=== PATIENT | female | born 1970 | race Caucasian/White ===

== ENCOUNTER → 2017-04-21 | Outpatient (CLI) | payer BC ==
[2017-04-21 13:01] LABS: Cholesterol 174 mg/dL (<200); HDL Cholesterol 63 mg/dL (40-60)
== END | disposition home or self-care (01) ==
LOC: LABWHC1 12:09
PROVIDERS: ATTEND Obstetrics & Gynecology
DX: E78.4 Other hyperlipidemia (principal)
CPT/HCPCS: 36415; 80061

== ENCOUNTER → 2018-04-02 | Outpatient (CLI) | payer BC ==
--- NOTE | 2018-04-04 13:32 | MM ---
Reason for exam: screening (asymptomatic). Last mammogram was performed 2 years and 1 month ago. History: Took hormonal contraceptives for 10 years beginning at age 25. Physical Findings: A clinical breast exam by your physician is recommended on an annual basis and results should be correlated with mammographic findings. MG 3D Screening Mammo W/Cad Bilateral CC and MLO view(s) were taken. Prior study comparison: March 09, 2016, bilateral MG screening mammo w CAD. January 23, 2015, bilateral MG diagnostic mammo w CAD JUNE. The breast tissue is heterogeneously dense. This may lower the sensitivity of mammography. No significant changes when compared with prior studies. ASSESSMENT: Negative, BI-RAD 1 RECOMMENDATION: Routine screening mammogram of both breasts in 1 year.
== END | disposition home or self-care (01) ==
LOC: RADMAMWWP 12:38
PROVIDERS: ATTEND Obstetrics & Gynecology
DX: Z12.31 Encounter for screening mammogram for malignant neoplasm of breast (principal)
CPT/HCPCS: 77063; 77067

== ENCOUNTER → 2019-04-18 | Outpatient (CLI) | payer BC ==
--- NOTE | 2019-04-22 09:58 | MM ---
Reason for exam: screening (asymptomatic). Last mammogram was performed 1 year and 1 month ago. History: Took hormonal contraceptives for 10 years beginning at age 25. Physical Findings: A clinical breast exam by your physician is recommended on an annual basis and results should be correlated with mammographic findings. MG 3D Screening Mammo W/Cad Bilateral CC and MLO view(s) were taken. Prior study comparison: April 02, 2018, bilateral MG 3d screening mammo w/cad. March 09, 2016, bilateral MG screening mammo w CAD. The breast tissue is heterogeneously dense. This may lower the sensitivity of mammography. No significant changes when compared with prior studies. ASSESSMENT: Benign, BI-RAD 2 RECOMMENDATION: Routine screening mammogram of both breasts in 1 year.
== END | disposition home or self-care (01) ==
LOC: RADMAMWWP 14:51
PROVIDERS: ATTEND Obstetrics & Gynecology
DX: Z12.31 Encounter for screening mammogram for malignant neoplasm of breast (principal)
CPT/HCPCS: 77063; 77067

== ENCOUNTER 2019-11-04 13:06 | Emergency (ER) | payer BC ==
[2019-11-04] MEDS ORDERED: HYDROmorphone 0.5 MG/0.5 ML SYRINGE IM STA (13:43)
[2019-11-04] MEDS ORDERED: ONDANSETRON ODT 4 MG TAB PO STA (13:43)
[2019-11-04] MEDS ORDERED: DIPH,PERTUS(ACELL)TETVAC-LF 0.5 ML VIAL IM ONE (13:54)
--- NOTE | 2019-11-04 13:55 | ED ---
Fall HPI - General Chief Complaint: Fall Stated Complaint: Fall/left hand injury Time Seen by Provider: 11/04/19 13:26 Source: patient Mode of arrival: wheelchair Limitations: no limitations - History of Present Illness Initial Comments: 49-year-old female presents emergency Department with chief complaint of a fall. Patient states she tripped, falling to her left arm. Patient went of left hand, forearm and left shoulder pain. Patient denies any head injury no loss conscious. Patient is right-hand dominant denies any prior fractures of left hand. Patient states there is noted bruising. Patient is unsure when her last tetanus was. She does have an abrasion by her fifth digit. - Related Data Previous Rx's Medication Instructions Recorded Cephalexin [Keflex] 500 mg PO Q8HR #21 cap 11/04/19 Allergies Allergy/AdvReac Type Severity Reaction Status Date / Time acetaminophen AdvReac Nausea & Verified 11/04/19 13:24 [From Tylenol-Codeine #3] Vomiting & Diarrhea codeine AdvReac Nausea & Verified 11/04/19 13:24 [From Tylenol-Codeine #3] Vomiting & Diarrhea Review of Systems ROS Statement: Those systems with pertinent positive or pertinent negative responses have been documented in the HPI. ROS Other: All systems not noted in ROS Statement are negative. Past Medical History Past Medical History: No Reported History History of Any Multi-Drug Resistant Organisms: None Reported Past Surgical History: Section Past Psychological History: No Psychological Hx Reported Smoking Status: Never smoker Past Alcohol Use History: None Reported Past Drug Use History: None Reported General Exam Limitations: no limitations General appearance: alert, in no apparent distress Head exam: Present: atraumatic, normocephalic, normal inspection Eye exam: Present: normal appearance, PERRL, EOMI. Absent: scleral icterus, conjunctival injection, periorbital swelling ENT exam: Present: normal exam, normal oropharynx, mucous membranes moist, TM's normal bilaterally Neck exam: Present: normal inspection, full ROM. Absent: tenderness, meningismus, lymphadenopathy Respiratory exam: Present: normal lung sounds bilaterally. Absent: respiratory distress, wheezes, rales, rhonchi, stridor Cardiovascular Exam: Present: regular rate, normal rhythm, normal heart sounds. Absent: systolic murmur, diastolic murmur, rubs, gallop, clicks Extremities exam: Present: other (There is ecchymosis and swelling on the left hand, neurovascular intact patient will not move her digits secondary to pain, there isexact wrist tenderness there is some proximal forearm tenderness and left humeral tenderness. No iris deformity neurovascular intact) Skin exam: Present: warm, dry, intact, normal color. Absent: rash Course Vital Signs 11/04/19 13:21 Temperature 98 F Pulse Rate 88 Respiratory 22 Rate Blood Pressure 133/93 O2 Sat by Pulse 99 Oximetry Procedures - Orthopedic Fracture Reduction Fracture #1 Consent Obtained: verbal consent Side: left Fracture Reduction Location: finger Analgesia: digital block Technique: direct manipulation Post-Reduction Neuro Exam: intact Post-Reduction Vascular Exam: intact Splint Applied: Yes Patient Tolerated Procedure: well, no complications Medical Decision Making - Medical Decision Making Patient Department for a fall, and arm injury. X-rays were obtained shows a fifth digit fracture. Patient will be discharged with close follow-up as her slight displacement. Return parameters were discussed. Family requests we followed up with [facility] Disposition Clinical Impression: Fall, Left shoulder strain, Fracture of phalanx, proximal, left hand Disposition: HOME SELF-CARE Condition: Stable Instructions (If sedation given, give patient instructions): Finger Fracture (ED) Additional Instructions: Please return to the Emergency Department if symptoms worsen or any other concerns. Prescriptions: Cephalexin [Keflex] 500 mg PO Q8HR #21 cap Is patient prescribed a controlled substance at d/c from ED?: No Referrals: Paul Jack MD [Primary Care Provider] - 1-2 days Zoran Tsai DO [Doctor of Osteopathic Medicine] - 1-2 days Time of Disposition: 15:20
[2019-11-04] MEDS ORDERED: LIDOCAINE 1% INJ 10MG/ML (20 ML MDV) SQ ONE (14:05)
[2019-11-04] MEDS ORDERED: CEPHALEXIN 500 MG CAP PO STA (14:05)
--- NOTE | 2019-11-04 14:19 | XR ---
EXAMINATION TYPE: XR shoulder complete LT DATE OF EXAM: 11/04/2019 CLINICAL HISTORY: Left shoulder pain TECHNIQUE: Three views of the left shoulder are obtained. COMPARISON: None. FINDINGS: There is no acute fracture/dislocation evident in the left shoulder. The acromioclavicula r and glenohumeral joint spaces appear within normal limits. The visualized ribs are intact and unre markable. IMPRESSION: There is no acute fracture or dislocation in the left shoulder.
--- NOTE | 2019-11-04 14:24 | XR ---
Left forearm HISTORY: Pain 2 views of the left forearm Bone mineralization, joint spaces and alignment are maintained. No fracture or dislocation. IMPRESSION: Normal left forearm
--- NOTE | 2019-11-04 14:26 | XR ---
Left hand HISTORY: Pain 3 views of the left hand There is a fracture of the proximal aspect of the proximal phalanx of the fifth digit left hand which appears impacted. No evident intra-articular involvement. No dislocation impression: Fifth digit fracture
[2019-11-04 15:29] VITALS: BP 123/78; PULSE 75; RESP 16; TEMP 98.1
== END 2019-11-04 15:32 | disposition home or self-care (01) ==
LOC: EC 13:06
DX: S62.617A Displaced fracture of proximal phalanx of left little finger, initial encounter for closed fracture (principal); S46.912A Strain of unspecified muscle, fascia and tendon at shoulder and upper arm level, left arm, initial encounter; M79.632 Pain in left forearm; Z88.5 Allergy status to narcotic agent; Z88.6 Allergy status to analgesic agent; Z23 Encounter for immunization; W01.0XXA Fall on same level from slipping, tripping and stumbling without subsequent striking against object, initial encounter; Y92.480 Sidewalk as the place of occurrence of the external cause
CPT/HCPCS: 73030; 73090; 73130; 90715; 99283; 26725; 96372; 90471; J2001; J1170

== ENCOUNTER → 2020-06-22 | Outpatient (CLI) | payer BC ==
[2020-06-22 17:55] LABS: Follicle Stimulating Hormone 48.1 mIU/mL; Luteinizing Hormone 24.7 mIU/mL
--- NOTE | 2020-06-24 10:11 | MM ---
Reason for exam: screening (asymptomatic). Last mammogram was performed 1 year and 2 months ago. History: Took hormonal contraceptives for 10 years beginning at age 25. Physical Findings: A clinical breast exam by your physician is recommended on an annual basis and results should be correlated with mammographic findings. MG 3D Screening Mammo W/Cad Bilateral CC and MLO view(s) were taken. Prior study comparison: April 18, 2019, bilateral MG 3d screening mammo w/cad. April 02, 2018, bilateral MG 3d screening mammo w/cad. There are scattered fibroglandular densities. No significant changes when compared with prior studies. ASSESSMENT: Benign, BI-RAD 2 RECOMMENDATION: Routine screening mammogram of both breasts in 1 year.
== END | disposition home or self-care (01) ==
LOC: RADMAMWWP 07:55
PROVIDERS: ATTEND Obstetrics & Gynecology
DX: Z12.31 Encounter for screening mammogram for malignant neoplasm of breast (principal); N95.1 Menopausal and female climacteric states
CPT/HCPCS: 36415; 77063; 77067; 82670; 83001; 83002

== ENCOUNTER → 2021-06-24 | Outpatient (CLI) | payer BC ==
--- NOTE | 2021-06-28 09:56 | MM ---
Reason for exam: screening (asymptomatic). Last mammogram was performed 1 year ago. History: Took hormonal contraceptives for 10 years beginning at age 25. Physical Findings: A clinical breast exam by your physician is recommended on an annual basis and results should be correlated with mammographic findings. MG 3D Screening Mammo W/Cad Bilateral CC and MLO view(s) were taken. Prior study comparison: June 22, 2020, bilateral MG 3d screening mammo w/cad. April 18, 2019, bilateral MG 3d screening mammo w/cad. The breast tissue is heterogeneously dense. This may lower the sensitivity of mammography. No significant changes when compared with prior studies. ASSESSMENT: Benign, BI-RAD 2 RECOMMENDATION: Routine screening mammogram of both breasts in 1 year.
== END | disposition home or self-care (01) ==
LOC: RADMAMWWP 14:58
PROVIDERS: ATTEND Obstetrics & Gynecology
DX: Z12.31 Encounter for screening mammogram for malignant neoplasm of breast (principal)
CPT/HCPCS: 77063; 77067

== ENCOUNTER → 2021-10-21 | Outpatient (CLI) | payer BC ==
[2021-10-21 14:57] LABS: HCT 46.9 % (37.2-46.3); HGB 14.9 g/dL (12.0-15.0); MCH 29.3 pg (27.0-32.0); MCHC 31.8 g/dL (32.0-37.0); MCV 92.3 fL (80.0-97.0); Mean Platelet Volume 9.9 fL (9.5-12.2); NRBC Per 100 WBC 0 /100 WBCS (0.0-0.0); Platelet Count 224 X 10*3/uL (140-440); RBC 5.08 X 10*6/uL (4.10-5.20); RDW 13.3 % (11.5-14.5); WBC 4.69 X 10*3/uL (4.50-10.00)
[2021-10-21 16:36] LABS: Chol/HDL Ratio 3.26 Ratio; Follicle Stimulating Hormone 64.4 mIU/mL; LDL Cholesterol,Calculated 129.7 mg/dL (0.0-131.0); Luteinizing Hormone 41.1 mIU/mL; VLDL Calculation 15.06 mg/dL (5.00-40.00)
[2021-10-21 20:18] LABS: Estradiol 18.2 pg/mL
== END | disposition home or self-care (01) ==
LOC: LABWHC1 09:11
PROVIDERS: ATTEND Obstetrics & Gynecology
DX: Z13.220 Encounter for screening for lipoid disorders (principal); N91.2 Amenorrhea, unspecified
CPT/HCPCS: 36415; 80061; 82670; 83001; 83002; 84439; 84443; 84479; 85027

== ENCOUNTER → 2022-04-27 | Outpatient (CLI) | payer BC ==
[2022-04-27 20:18] LABS: Estradiol 27.5 pg/mL; Follicle Stimulating Hormone 51.3 mIU/mL; Luteinizing Hormone 28.9 mIU/mL
== END | disposition home or self-care (01) ==
LOC: LABWHC1 11:25
PROVIDERS: ATTEND Obstetrics & Gynecology
DX: N95.0 Postmenopausal bleeding (principal)
CPT/HCPCS: 36415; 82670; 83001; 83002

== ENCOUNTER → 2022-06-15 | Day surgery (SDC) | payer BC ==
[2022-06-14 12:25] VITALS: BMI 28.3
[~2022-06-15] MED LIST: LACTATED RINGERS 1,000 ML IV ONE; LACTATED RINGERS 1,000 ML IV SCH; ONDANSETRON 4 MG/2 ML VIAL IVP ONE; ONDANSETRON 4 MG/2 ML VIAL ONE
--- NOTE | 2022-06-15 08:34 | P.GSHP ---
History of Present Illness H&P Date: 06/15/22 CHIEF COMPLAINT: Colon screen HISTORY OF PRESENT ILLNESS: The patient is a 51-year-old female who presents for colon screen. Lower endoscopy was offered for further evaluation and management. PAST MEDICAL HISTORY: Please see list. PAST SURGICAL HISTORY: Please see list. MEDICATIONS: Please see list. ALLERGIES: Please see list. SOCIAL HISTORY: No illicit drug use FAMILY HISTORY: No reports of Crohn disease or ulcerative colitis. REVIEW OF ORGAN SYSTEMS: CONSTITUTIONAL: No reports of fevers or chills. PHYSICAL EXAM: VITAL SIGNS: Stable GENERAL: Well-developed pleasant in no acute distress. HEENT: No scleral icterus. Extraocular movements grossly intact. Moist buccal mucosa. NECK: Supple without lymphadenopathy. CHEST: Unlabored respirations. Equal bilateral excursions. CARDIOVASCULAR: Regular rate and rhythm. Distal 2+ pulses. ABDOMEN: Soft, nontender, nondistended. MUSCULOSKELETAL: No clubbing, cyanosis, or edema. ASSESSMENT: 1. Colon screen. PLAN: 1. Recommend proceeding with a lower endoscopy Past Medical History Past Medical History: No Reported History Additional Past Medical History / Comment(s): carries MTHFR-never has had any problems with clots History of Any Multi-Drug Resistant Organisms: None Reported Past Surgical History: Section Additional Past Surgical History / Comment(s): lt ovary w/ benign tumor removed Past Anesthesia/Blood Transfusion Reactions: No Reported Reaction Smoking Status: Never smoker - Past Family History Father Family Medical History: Cancer Additional Family Medical History / Comment(s): lung CA Medications and Allergies Home Medications Medication Instructions Recorded Confirmed Type Liraglutide [Saxenda] 3 mg SQ HS 04/05/22 06/14/22 History Multivitamins, Thera [Multivitamin 1 tab PO DAILY 04/05/22 06/14/22 History (formulary)] Allergies Allergy/AdvReac Type Severity Reaction Status Date / Time codeine AdvReac Nausea & Verified 06/14/22 12:19 [From Tylenol-Codeine #3] Vomiting & Diarrhea
[2022-06-15 09:12] VITALS: TEMP 98.4
--- NOTE | 2022-06-15 09:36 | P.PCN ---
Date of Procedure: 06/15/22 Description of Procedure: PREOPERATIVE DIAGNOSIS: Colonoscopy screening. POSTOPERATIVE DIAGNOSIS: Colonoscopy screening. External hemorrhoids. Sigmoid diverticulosis OPERATION: Colonoscopy to the hepatic flexure SURGEON: Haley Stoddard MD. ANESTHESIA: MAC. INDICATIONS: The patient is a 51-year-old female who presents for colonoscopy screening. Benefits and risks were described and informed consent was obtained. DESCRIPTION OF PROCEDURE: The patient had undergone Sutab prep. She had been brought into the operating room and laid in the left lateral decubitus position. After adequate intravenous sedation, the rectum was examined with 2% lidocaine jelly. External hemorrhoids were encountered. The rectal tone was loose. No lesions were palpated in the rectal vault. A pediatricOlympus colonoscope was advanced along the rectum to a very tortuous sigmoid colon to the splenic flexure. Despite multiple maneuvers, the sigmoid colon had severe tortuosity preventing further advancement of scope. The scope was passed to the splenic flexure. No evidence of polyps were identified. As the patient posed high resistance and risk for perforation with persistence of the procedure, the procedure was discontinued. The colon was desufflated. The patient had tolerated the procedure well. Withdrawal time was over 6 minutes. FINDINGS: [place] preparation quality scale 1 (1-5) Tortuous sigmoid colon with stricture preventing further advancement beyond splenic flexure External prolapsed hemorrhoids. Scope advanced to sigmoid colon splenic flexure No arteriovenous malformations. No adenomatous polyps. No focal colitis. RECOMMENDATIONS: Completion of colonoscopy evaluation with barium enema. Plan - Discharge Summary Discharge Rx Participant: No New Discharge Prescriptions: No Action Multivitamins, Thera [Multivitamin (formulary)] 1 tab PO DAILY Liraglutide [Saxenda] 3 mg SQ HS Discharge Medication List Liraglutide [Saxenda] 3 mg SQ HS 04/05/22 [History] Multivitamins, Thera [Multivitamin (formulary)] 1 tab PO DAILY 04/05/22 [History]
[2022-06-15 10:03] VITALS: RESP 20
[2022-06-15 10:16] VITALS: BP 115/71; PULSE 73
--- NOTE | 2022-06-15 15:03 | FL ---
EXAMINATION TYPE: FL barium enema DATE OF EXAM: 06/15/2022 CLINICAL HISTORY: 51-year-old female incomplete colonoscopy to the splenic flexure. No biopsies. TECHNIQUE: A double contrast barium enema study is performed. Total fluoroscopy time: 1 minute 44 seconds. Total images: 58. COMPARISON: None. FINDINGS: Staff Nurse [facility] [employer] view of the abdomen shows overall mild residual retained air. Decision is made to proceed with barium enema exam. Very mild diverticulosis is present along the descending and sigmoid colon. Limited coating of the cecum and ascending colon but without any gross abnormality. No evidence of an y mass or polyp, obstructing or constricting lesion throughout the colon. Appendix was filled and darrick eared normal. IMPRESSION: Slightly limited cecum and ascending colon due to the degree of coating. Mild diverticulosis along th e left side of the colon. Otherwise, no suspicious lesion seen.
== END | disposition home or self-care (01) ==
LOC: ORWHC2ENDO 08:40
PROVIDERS: ATTEND Surgery Plastic and Reconstructive Surgery
DX: Z12.11 Encounter for screening for malignant neoplasm of colon (principal); K64.4 Residual hemorrhoidal skin tags; K57.30 Diverticulosis of large intestine without perforation or abscess without bleeding; Z98.891 History of uterine scar from previous surgery; Z80.1 Family history of malignant neoplasm of trachea, bronchus and lung; Z88.5 Allergy status to narcotic agent
CPT/HCPCS: 74270; 45378; J2405

== ENCOUNTER → 2022-07-19 | Outpatient (CLI) | payer BC ==
--- NOTE | 2022-07-20 09:23 | MM ---
Reason for Exam: Screening (asymptomatic). Last mammogram was performed 1 year(s) and 1 month(s) ago. Patient History: Menarche at age 16. First Full-Term at age 28. Left ovary removed at age 39. Postmenopausal. Hormonal Contraceptives for 10 years from age 25 until age 35. Risk Values: Lisandra 5 year model risk: 0.9%. NCI Lifetime model risk: 9.2%. Prior Study Comparison: 04/18/2019 Bilateral Screening Mammogram, [facility]. 06/22/2020 Bilateral Screening Mammogram, [facility]. 06/24/2021 Bilateral Screening Mammogram, [facility]. Tissue Density: The breast tissue is heterogeneously dense. This may lower the sensitivity of mammography. Findings: Analyzed By CAD. There is no suspicious group of microcalcifications or new suspicious mass in either breast. Overall Assessment: Negative, BI-RAD 1 Management: Screening Mammogram of both breasts in 1 year. A clinical breast exam by your physician is recommended on an annual basis and results should be correlated with mammographic findings. [facility] will attempt to contact patient to return for supplemental views and ultrasound if indicated. Electronically signed and approved by: Rodrigo Chung DO
== END | disposition home or self-care (01) ==
LOC: RADMAMWWP 15:05
PROVIDERS: ATTEND Obstetrics & Gynecology
DX: Z12.31 Encounter for screening mammogram for malignant neoplasm of breast (principal); Z78.0 Asymptomatic menopausal state; Z90.721 Acquired absence of ovaries, unilateral
CPT/HCPCS: 77063; 77067

== ENCOUNTER 2022-08-06 07:31 | Emergency (ER) | payer BC ==
[2022-08-06 07:40] VITALS: RESP 18
[2022-08-06] MEDS ORDERED: SODIUM CHLORIDE 0.9% 1,000 ML IV STA (07:47)
[2022-08-06] MEDS ORDERED: ONDANSETRON 4 MG/2 ML VIAL IVP STA (07:47)
[2022-08-06] MEDS ORDERED: MORPHINE SULFATE 4 MG/ML SYRINGE IVP STA (08:04)
--- NOTE | 2022-08-06 08:27 | ED ---
Abdominal Pain HPI - General Chief Complaint: Abdominal Pain Stated Complaint: Abd pain and vomiting Time Seen by Provider: 08/06/22 07:47 Source: patient, family, RN notes reviewed, old records reviewed (May 2022 colonoscopy report reviewed) Mode of arrival: ambulatory Limitations: no limitations - History of Present Illness Initial Comments: Patient is a 51-year-old female presenting to the emergency room with complaints of abdominal pain in the right lower quadrant radiating posteriorly to her back along with nausea and vomiting which began earlier this evening/last night. She reports having a bowel movement this morning which was normal. She states that she recently underwent a colonoscopy by Dr. Stoddard and it was adv ised that her colon was tortuous and they were unable to advance the scope consequently she underwent a barium swallow evaluation. She was advised that she would need further workup regarding her small intestine and colonic anatomy and may need surgery in the future. At that time she was pain-free and was not vomiting. She does have a history of diverticulosis in the sigmoid colon along with external hemorrhoids; she has no other significant past medical history. She denies any chest pain, shortness of breath, dysuria or hematuria, fevers or chills. - Related Data Home Medications Medication Instructions Recorded Confirmed Liraglutide [Saxenda] 3 mg SQ HS 04/05/22 06/15/22 Multivitamins, Thera [Multivitamin 1 tab PO DAILY 04/05/22 06/15/22 (formulary)] Previous Rx's Medication Instructions Recorded Ondansetron Odt [Zofran Odt] 4 mg PO Q8HR PRN 7 Days #21 tab 08/06/22 Allergies Allergy/AdvReac Type Severity Reaction Status Date / Time codeine AdvReac Nausea & Verified 08/06/22 07:39 [From Tylenol-Codeine #3] Vomiting & Diarrhea Review of Systems ROS Statement: Those systems with pertinent positive or pertinent negative responses have been documented in the HPI. ROS Other: All systems not noted in ROS Statement are negative. Past Medical History Past Medical History: No Reported History History of Any Multi-Drug Resistant Organisms: None Reported Past Surgical History: Section Additional Past Surgical History / Comment(s): lt ovary w/ benign tumor removed Past Anesthesia/Blood Transfusion Reactions: No Reported Reaction Past Psychological History: No Psychological Hx Reported Smoking Status: Never smoker Past Alcohol Use History: None Reported Past Drug Use History: None Reported - Past Family History Father Family Medical History: Cancer Additional Family Medical History / Comment(s): lung CA General Exam General appearance: alert, other (In pain) Head exam: Present: atraumatic, normocephalic, normal inspection Eye exam: Present: normal appearance, PERRL, EOMI. Absent: scleral icterus, conjunctival injection, periorbital swelling ENT exam: Present: normal exam, mucous membranes moist Neck exam: Present: normal inspection, full ROM Respiratory exam: Present: normal lung sounds bilaterally. Absent: respiratory distress, wheezes, rales, rhonchi, stridor Cardiovascular Exam: Present: normal rhythm, tachycardia (mild), normal heart sounds. Absent: systolic murmur, diastolic murmur, rubs, gallop, clicks GI/Abdominal exam: Present: soft, tenderness (RLQ & RUQ), normal bowel sounds. Absent: distended, rebound, rigid Rectal exam: Present: deferred Extremities exam: Present: normal inspection. Absent: pedal edema, joint swelling Back exam: Present: normal inspection Neurological exam: Present: alert, oriented X3, CN II-XII intact Psychiatric exam: Present: other (in pain) Skin exam: Present: warm, dry, intact, normal color. Absent: rash Course Vital Signs 08/06/22 07:37 Temperature 98 F Pulse Rate 105 H Respiratory 18 Rate Blood Pressure 135/81 O2 Sat by Pulse 99 Oximetry Medical Decision Making - Medical Decision Making 51-year-old female presenting to the emergency room with abrupt onset of right lower quadrant pain radiating posteriorly and upward with nausea and vomiting, no diarrhea fevers or chills. Will give IV hydration along with morphine for pain and Zofran for nausea. Will obtain CT of the abdomen and check labs of CBC, CMP, amylase, lipase, urinalysis, urine test and separate swab. Computed tomography scan image interpreted by me demonstrates no acute intra- abdominal process. CBC unremarkable, CMP shows slightly elevated potassium, elevated fasting blood sugar at 137 was slightly elevated lipase at 302, amylase normal. Liver enzymes slightly elevated however bilirubin is normal. Concern for new onset of diabetes in the setting of mildly elevated lipase with elevated fasting blood sugar. Symptoms improved with IV hydration and Zofran along with morphine for pain. Findings discussed with patient and spouse at bedside. Will discharge in stable condition with prescription for zofran. Encouraged good oral hydration. Encouraged follow-up with primary care provider for further eval uation for possible diabetes given elevated glucose and lipase. Questions and concerns answered. Case discussed with Dr. Milton. - Lab Data Result diagrams: 08/06/22 08:45 08/06/22 08:45 Lab Results 08/06/22 08/06/22 08/06/22 Range/Units 08:45 08:45 08:45 WBC 5.9 (3.8-10.6) k/uL RBC 4.88 (3.80-5.40) m/uL Hgb 15.2 (11.4-16.0) gm/dL Hct 44.1 (34.0-46.0) % MCV 90.4 (80.0-100.0) fL MCH 31.2 (25.0-35.0) pg MCHC 34.5 (31.0-37.0) g/dL RDW 12.8 (11.5-15.5) % Plt Count 214 (150-450) k/uL MPV 8.8 Neutrophils % 43 % Lymphocytes % 41 % Monocytes % 6 % Eosinophils % 6 % Basophils % 1 % Neutrophils # 2.6 (1.3-7.7) k/uL Lymphocytes # 2.4 (1.0-4.8) k/uL Monocytes # 0.4 (0-1.0) k/uL Eosinophils # 0.3 (0-0.7) k/uL Basophils # 0.1 (0-0.2) k/uL Sodium 137 (137-145) mmol/L Potassium 4.4 (3.5-5.1) mmol/L Chloride 105 (98-107) mmol/L Carbon Dioxide 22 (22-30) mmol/L Anion Gap 10 mmol/L BUN 14 (7-17) mg/dL Creatinine 0.64 (0.52-1.04) mg/dL Est GFR (CKD-EPI)AfAm >90 (>60 ml/min/1.73 sqM) Est GFR (CKD-EPI)NonAf >90 (>60 ml/min/1.73 sqM) Glucose 137 H (74-99) mg/dL Calcium 11.9 H (8.4-10.2) mg/dL Total Bilirubin 0.6 (0.2-1.3) mg/dL AST 76 H (14-36) U/L ALT 38 H (4-34) U/L Alkaline Phosphatase 82 (38-126) U/L Total Protein 6.9 (6.3-8.2) g/dL Albumin 4.2 (3.5-5.0) g/dL Amylase 77 (30-110) U/L Lipase 302 H (23-300) U/L Urine Color Yellow Urine Appearance Turbid H (Clear) Urine pH 8.5 H (5.0-8.0) Ur Specific Hitchcock 1.017 (1.001-1.035) Urine Protein Trace H (Negative) Urine Glucose (UA) Negative (Negative) Urine Ketones Negative (Negative) Urine Blood Negative (Negative) Urine Nitrite Negative (Negative) Urine Bilirubin Negative (Negative) Urine Urobilinogen <2.0 (<2.0) mg/dL Ur Leukocyte Esterase Negative (Negative) Urine WBC 9 H (0-5) /hpf Ur Squamous Epith Cells 2 (0-4) /hpf Amorphous Sediment Moderate H (None) /hpf Urine Mucus Rare H (None) /hpf Urine HCG, Qual (Not Detectd) Influenza Type A (PCR) (Not Detectd) Influenza Type B (PCR) (Not Detectd) RSV (PCR) (Not Detectd) SARS-CoV-2 (PCR) (Not Detectd) 08/06/22 08/06/22 Range/Units 08:45 08:45 WBC (3.8-10.6) k/uL RBC (3.80-5.40) m/uL Hgb (11.4-16.0) gm/dL Hct (34.0-46.0) % MCV (80.0-100.0) fL MCH (25.0-35.0) pg MCHC (31.0-37.0) g/dL RDW (11.5-15.5) % Plt Count (150-450) k/uL MPV Neutrophils % % Lymphocytes % % Monocytes % % Eosinophils % % Basophils % % Neutrophils # (1.3-7.7) k/uL Lymphocytes # (1.0-4.8) k/uL Monocytes # (0-1.0) k/uL Eosinophils # (0-0.7) k/uL Basophils # (0-0.2) k/uL Sodium (137-145) mmol/L Potassium (3.5-5.1) mmol/L Chloride (98-107) mmol/L Carbon Dioxide (22-30) mmol/L Anion Gap mmol/L BUN (7-17) mg/dL Creatinine (0.52-1.04) mg/dL Est GFR (CKD-EPI)AfAm (>60 ml/min/1.73 sqM) Est GFR (CKD-EPI)NonAf (>60 ml/min/1.73 sqM) Glucose (74-99) mg/dL Calcium (8.4-10.2) mg/dL Total Bilirubin (0.2-1.3) mg/dL AST (14-36) U/L ALT (4-34) U/L Alkaline Phosphatase (38-126) U/L Total Protein (6.3-8.2) g/dL Albumin (3.5-5.0) g/dL Amylase (30-110) U/L Lipase (23-300) U/L Urine Color Urine Appearance (Clear) Urine pH (5.0-8.0) Ur Specific Hitchcock (1.001-1.035) Urine Protein (Negative) Urine Glucose (UA) (Negative) Urine Ketones (Negative) Urine Blood (Negative) Urine Nitrite (Negative) Urine Bilirubin (Negative) Urine Urobilinogen (<2.0) mg/dL Ur Leukocyte Esterase (Negative) Urine WBC (0-5) /hpf Ur Squamous Epith Cells (0-4) /hpf Amorphous Sediment (None) /hpf Urine Mucus (None) /hpf Urine HCG, Qual Not Detected (Not Detectd) Influenza Type A (PCR) Not Detected (Not Detectd) Influenza Type B (PCR) Not Detected (Not Detectd) RSV (PCR) Not Detected (Not Detectd) SARS-CoV-2 (PCR) Not Detected (Not Detectd) - Radiology Data Radiology results: report reviewed, image reviewed CT abdomen and pelvis without contrast impression by radiologist no significant abnormalities to account for patient's symptoms appendix is normal. Gallbladder is unremarkable; no inflammatory process seen in the pancreas. Disposition Clinical Impression: Abdominal pain, Nausea & vomiting Disposition: HOME SELF-CARE Instructions (If sedation given, give patient instructions): Abdominal Pain (ED), Acute Nausea and Vomiting (ED) Additional Instructions: Please continue to stay well hydrated. May start bland diet slowly. Utilize Zofran prescription as needed for nausea. Please follow-up with your primary care provider. It is recommended that workup be completed for possible diabetes in the setting of elevated fasting glucose along with elevated lipase. Please return to the Emergency Department if symptoms worsen or any other concerns. Prescriptions: Ondansetron Odt [Zofran Odt] 4 mg PO Q8HR PRN 7 Days #21 tab PRN Reason: Nausea Is patient prescribed a controlled substance at d/c from ED?: No Referrals: Paul Jack MD [Primary Care Provider] - 1-2 days
--- NOTE | 2022-08-06 09:15 | CT ---
EXAMINATION TYPE: CT abdomen pelvis wo con DATE OF EXAM: 08/06/2022 COMPARISON: 01/24/2010 HISTORY: pain CT DLP: 642.4 mGycm Examination of the solid and hollow viscera is limited given the lack of contrast. FINDINGS: LUNG BASES: No evidence for nodule. No evidence for infiltrate. Incidental note is made of a small hi atal hernia. LIVER/GB: The gallbladder is unremarkable. No space-occupying hepatic lesion. PANCREAS: No pancreatic mass identified. No inflammatory process seen. SPLEEN: No evidence for splenomegaly. No intrasplenic lesions seen. ADRENALS: No adrenal nodules identified. No evidence for thickening. KIDNEYS: No evidence for renal mass. No nephrolithiasis. No hydronephrosis. BOWEL: Appendix has a normal appearance. No evidence of bowel obstruction. No inflammatory process. Lymph nodes: No evidence for adenopathy greater than 1 cm. Abdominal aorta: Atheromatous changes seen. No evidence for aneurysm. Genital organs: No significant abnormality. Other: Small fat-containing umbilical hernia. IMPRESSION: NO SIGNIFICANT ABNORMALITY TO ACCOUNT FOR THE PATIENT'S SYMPTOMS.
[2022-08-06 09:18] LABS: Basophils # (A) 0.1 k/uL (0-0.2); Basophils % (A) 1 %; Eosinophils # (A) 0.3 k/uL (0-0.7); Eosinophils % (A) 6 %; HCT 44.1 % (34.0-46.0); HGB 15.2 gm/dL (11.4-16.0); Lymphocytes # (A) 2.4 k/uL (1.0-4.8); Lymphocytes % (A) 41 %; MCH 31.2 pg (25.0-35.0); MCHC 34.5 g/dL (31.0-37.0); MCV 90.4 fL (80.0-100.0); Mean Platelet Volume 8.8; Monocytes # (A) 0.4 k/uL (0-1.0); Monocytes % (A) 6 %; Neutrophils # (A) 2.6 k/uL (1.3-7.7); Neutrophils % (A) 43 %; Platelet Count 214 k/uL (150-450); RBC 4.88 m/uL (3.80-5.40); RDW 12.8 % (11.5-15.5); WBC 5.9 k/uL (3.8-10.6)
[2022-08-06 10:31] LABS: ALT 38 U/L (4-34); AST 76 U/L (14-36); African American GFR (CKD) >90 (>60 ml/min/1.73 sqM); Albumin 4.2 g/dL (3.5-5.0); Alkaline Phosphatase 82 U/L (38-126); Amylase 77 U/L (30-110); Anion Gap 10 mmol/L; Blood Urea Nitrogen 14 mg/dL (7-17); Calcium 11.9 mg/dL (8.4-10.2); Carbon Dioxide 22 mmol/L (22-30); Chloride 105 mmol/L (98-107); Glucose 137 mg/dL (74-99); Lipase 302 U/L (23-300); Non-African American GFR(CKD) >90 (>60 ml/min/1.73 sqM); Sodium 137 mmol/L (137-145); Total Bilirubin 0.6 mg/dL (0.2-1.3); Total Protein 6.9 g/dL (6.3-8.2)
[2022-08-06 10:43] LABS: Potassium 4.4 mmol/L (3.5-5.1)
[2022-08-06 12:05] LABS: Amorphous Sediment,Urine Moderate /hpf; Appearance,Urine Turbid (Clear); Bilirubin,Urine Negative (Negative); Blood,Urine Negative (Negative); Color,Urine Yellow; Glucose,Urine (UA) Negative (Negative); Ketones,Urine Negative (Negative); Leukocyte Esterase,Urine Negative (Negative); Mucus,Urine Rare /hpf; Nitrite,Urine Negative (Negative); PH, Urine 8.5 (5.0-8.0); Protein,Urine Trace (Negative); Specific Gravity,Urine 1.017 (1.001-1.035); Squamous Epithelial Cell,Urine 2 /hpf (0-4); Urobilinogen,Urine <2.0 mg/dL (<2.0); WBC,Urine 9 /hpf (0-5)
[2022-08-06 14:22] VITALS: BP 102/76; PULSE 91; TEMP 98
== END 2022-08-06 14:20 | disposition home or self-care (01) ==
LOC: EC 07:31
DX: R10.31 Right lower quadrant pain (principal); R11.2 Nausea with vomiting, unspecified; Z88.5 Allergy status to narcotic agent; Z20.822 Contact with and (suspected) exposure to COVID-19
CPT/HCPCS: 99284; 96374; 96375; 96361 ×4; 36415; 80053; 82150; 83690; 85025; 81001; 81025; 87636; 74176; J2270; J2405; 99285

== ENCOUNTER 2022-08-11 22:46 | Emergency (ER) | payer BC ==
[2022-08-11 23:02] VITALS: BP 156/96; PULSE 98; RESP 20; TEMP 98.7
[2022-08-11] MEDS ORDERED: PANTOPRAZOLE 40 MG/10 ML VIAL IVP STA (23:06)
[2022-08-11] MEDS ORDERED: SODIUM CHLORIDE 0.9% 1,000 ML IV STA (23:06)
[2022-08-11] MEDS ORDERED: MORPHINE SULFATE 4 MG/ML SYRINGE IV STA (23:06)
[2022-08-11] MEDS ORDERED: ONDANSETRON 4 MG/2 ML VIAL IVP STA (23:06)
[2022-08-11] MEDS ORDERED: KETOROLAC 15 MG/ML 1 ML VIAL IVP STA (23:06)
--- NOTE | 2022-08-11 23:07 | ED ---
Abdominal Pain HPI - General Chief Complaint: Nausea/Vomiting/Diarrhea Stated Complaint: Side pain, back pain Time Seen by Provider: 08/11/22 23:06 Source: patient, RN notes reviewed, old records reviewed Mode of arrival: ambulatory Limitations: no limitations - History of Present Illness Initial Comments: This is a 51-year-old female significant abdominal pain positive nausea positive vomiting positive diarrhea. Abdominal pain is persistent here in the ER patient is having abdominal pain with right-sided flank pain and nausea. Patient has no fever no history of prior abdominal surgery MD Complaint: abdominal pain, flank pain -: days(s) Location: diffuse, bilateral flank Radiation: epigastric, suprapubic Migration to: epigastric Severity: moderate Severity scale (1-10): 7 Quality: stabbing Consistency: intermittent Improves With: nothing Worsens With: nothing Context: other (0) Associated Symptoms: nausea Treatments Prior to Arrival: other (0) - Related Data Home Medications Medication Instructions Recorded Confirmed Liraglutide [Saxenda] 3 mg SQ HS 04/05/22 08/17/22 Multivitamins, Thera [Multivitamin 1 tab PO DAILY 04/05/22 08/17/22 (formulary)] Previous Rx's Medication Instructions Recorded Ondansetron Odt [Zofran Odt] 4 mg PO Q8HR PRN 7 Days #21 tab 08/06/22 Ondansetron Odt [Zofran Odt] 8 mg PO Q8HR PRN #15 tab 08/13/22 traMADol HCl [Ultram] 50 - 100 mg PO Q6HR PRN 3 Days #15 08/13/22 tab Acetaminophen Tab [Tylenol] 650 mg PO Q6H #30 tab 08/17/22 Docusate [Colace] 100 mg PO BID #20 capsule 08/17/22 Ibuprofen [Motrin] 600 mg PO Q6HR PRN #40 tab 08/17/22 oxyCODONE HCL [OxyIR] 5 mg PO Q6H PRN 3 Days #10 tab 08/17/22 Allergies Allergy/AdvReac Type Severity Reaction Status Date / Time codeine AdvReac Nausea & Verified 08/17/22 13:32 [From Tylenol-Codeine #3] Vomiting & Diarrhea Review of Systems ROS Statement: Those systems with pertinent positive or pertinent negative responses have been documented in the HPI. ROS Other: All systems not noted in ROS Statement are negative. Past Medical History Past Medical History: No Reported History History of Any Multi-Drug Resistant Organisms: None Reported Past Surgical History: Section Additional Past Surgical History / Comment(s): lt ovary w/ benign tumor removed Past Anesthesia/Blood Transfusion Reactions: No Reported Reaction Past Psychological History: No Psychological Hx Reported Smoking Status: Never smoker Past Alcohol Use History: None Reported Past Drug Use History: None Reported - Past Family History Father Family Medical History: Cancer Additional Family Medical History / Comment(s): lung CA General Exam Limitations: no limitations General appearance: alert, in no apparent distress Head exam: Present: atraumatic, normocephalic, normal inspection Eye exam: Present: normal appearance, PERRL, EOMI. Absent: scleral icterus, conjunctival injection, periorbital swelling ENT exam: Present: normal exam, mucous membranes moist Neck exam: Present: normal inspection. Absent: tenderness, meningismus, lymph adenopathy Respiratory exam: Present: normal lung sounds bilaterally. Absent: respiratory distress, wheezes, rales, rhonchi, stridor Cardiovascular Exam: Present: regular rate, normal rhythm, normal heart sounds. Absent: systolic murmur, diastolic murmur, rubs, gallop, clicks GI/Abdominal exam: Present: soft, normal bowel sounds. Absent: distended, tenderness, guarding, rebound, rigid Extremities exam: Present: normal inspection, full ROM, normal capillary refill. Absent: tenderness, pedal edema, joint swelling, calf tenderness Back exam: Present: normal inspection Neurological exam: Present: alert, oriented X3, CN II-XII intact Psychiatric exam: Present: normal affect, normal mood Skin exam: Present: warm, dry, intact, normal color. Absent: rash Course Vital Signs 08/11/22 22:58 Temperature 98.7 F Pulse Rate 98 Respiratory 20 Rate Blood Pressure 156/96 O2 Sat by Pulse 98 Oximetry - Reevaluation(s) Reevaluation #1: 08/11/22 Medical record is reviewed Patient symptoms improved here in the ER Patient informed of results and questions answered Medical Decision Making - Medical Decision Making 89 female with nausea vomiting diarrhea and abdominal pain. CT labwork is negative. Patient can be discharged home - Lab Data Result diagrams: 08/11/22 23:55 08/12/22 01:31 Lab Results 08/11/22 08/12/22 Range/Units 23:55 01:31 WBC 8.4 (3.8-10.6) k/uL RBC 4.68 (3.80-5.40) m/uL Hgb 14.4 (11.4-16.0) gm/dL Hct 41.5 (34.0-46.0) % MCV 88.7 (80.0-100.0) fL MCH 30.7 (25.0-35.0) pg MCHC 34.6 (31.0-37.0) g/dL RDW 12.3 (11.5-15.5) % Plt Count 265 (150-450) k/uL MPV 7.6 Neutrophils % 70 % Lymphocytes % 20 % Monocytes % 5 % Eosinophils % 3 % Basophils % 1 % Neutrophils # 5.9 (1.3-7.7) k/uL Lymphocytes # 1.7 (1.0-4.8) k/uL Monocytes # 0.4 (0-1.0) k/uL Eosinophils # 0.3 (0-0.7) k/uL Basophils # 0.1 (0-0.2) k/uL Sodium 137 (137-145) mmol/L Potassium 4.2 (3.5-5.1) mmol/L Chloride 105 (98-107) mmol/L Carbon Dioxide 24 (22-30) mmol/L Anion Gap 8 mmol/L BUN 24 H (7-17) mg/dL Creatinine 0.74 (0.52-1.04) mg/dL Est GFR (CKD-EPI)AfAm >90 (>60 ml/min/1.73 sqM) Est GFR (CKD-EPI)NonAf >90 (>60 ml/min/1.73 sqM) Glucose 122 H (74-99) mg/dL Calcium 10.6 H (8.4-10.2) mg/dL Total Bilirubin 0.4 (0.2-1.3) mg/dL AST 27 (14-36) U/L ALT 46 H (4-34) U/L Alkaline Phosphatase 88 (38-126) U/L Total Protein 6.4 (6.3-8.2) g/dL Albumin 3.9 (3.5-5.0) g/dL Amylase 74 (30-110) U/L Lipase 209 (23-300) U/L - Radiology Data Radiology results: report reviewed (Ultrasound gallbladder CT head and pelvis negative for acute disease), image reviewed Disposition Clinical Impression: Abdominal pain, Nausea & vomiting, Dehydration, Gastroenteritis Disposition: HOME SELF-CARE Condition: Fair Instructions (If sedation given, give patient instructions): Biliary Colic (ED), Gallstones (ED), Abdominal Pain (ED) Is patient prescribed a controlled substance at d/c from ED?: No Referrals: Paul Jack MD [Primary Care Provider] - 1-2 days Time of Disposition: 20:00
[2022-08-12 00:07] LABS: Basophils # (A) 0.1 k/uL (0-0.2); Basophils % (A) 1 %; Eosinophils # (A) 0.3 k/uL (0-0.7); Eosinophils % (A) 3 %; HCT 41.5 % (34.0-46.0); HGB 14.4 gm/dL (11.4-16.0); Lymphocytes # (A) 1.7 k/uL (1.0-4.8); Lymphocytes % (A) 20 %; MCH 30.7 pg (25.0-35.0); MCHC 34.6 g/dL (31.0-37.0); MCV 88.7 fL (80.0-100.0); Mean Platelet Volume 7.6; Monocytes # (A) 0.4 k/uL (0-1.0); Monocytes % (A) 5 %; Neutrophils # (A) 5.9 k/uL (1.3-7.7); Neutrophils % (A) 70 %; Platelet Count 265 k/uL (150-450); RBC 4.68 m/uL (3.80-5.40); RDW 12.3 % (11.5-15.5); WBC 8.4 k/uL (3.8-10.6)
[2022-08-12] MEDS ORDERED: AMPICILLIN-SULBACTAM 3 GM in SODIUM CHLORIDE 0.9% 100 ML IVPB STA (00:41)
--- NOTE | 2022-08-12 01:14 | US ---
EXAMINATION TYPE: US gallbladder DATE OF EXAM: 08/12/2022 COMPARISON: CT: 08/06/22 CLINICAL HISTORY: pain. epigastric pain TECHNIQUE: Multiple sonographic images of the right upper quadrant are obtained. FINDINGS: EXAM MEASUREMENTS: Liver Length: 15.9 cm Gallbladder Wall: 0.2 cm CBD: 0.46 cm Right Kidney: 9.5 x 4.6 x 4.0 cm [employer] W[employer] ROOM NOTES: Pancreas: Limited due to bowel gas, parts visualized appear wnl Liver: wnl Gallbladder: Gallstones visualized in the fundus Evidence for sonographic Blair's sign: No CBD: wnl Right Kidney: dilated renal pelvis IMPRESSION: There are multiple gallstones. No dilated ducts. There is some prominence of the right renal pelvis but no renal atrophy. No right renal mass. Renal pelvis is likely increased compared to recent CT scan of 08/06/2022.
[2022-08-12 02:14] LABS: ALT 46 U/L (4-34); AST 27 U/L (14-36); African American GFR (CKD) >90 (>60 ml/min/1.73 sqM); Albumin 3.9 g/dL (3.5-5.0); Alkaline Phosphatase 88 U/L (38-126); Amylase 74 U/L (30-110); Anion Gap 8 mmol/L; Blood Urea Nitrogen 24 mg/dL (7-17); Calcium 10.6 mg/dL (8.4-10.2); Carbon Dioxide 24 mmol/L (22-30); Chloride 105 mmol/L (98-107); Glucose 122 mg/dL (74-99); Lipase 209 U/L (23-300); Non-African American GFR(CKD) >90 (>60 ml/min/1.73 sqM); Potassium 4.2 mmol/L (3.5-5.1); Sodium 137 mmol/L (137-145); Total Bilirubin 0.4 mg/dL (0.2-1.3); Total Protein 6.4 g/dL (6.3-8.2)
--- NOTE | 2022-08-12 02:34 | CT ---
EXAMINATION TYPE: CT abdomen pelvis wo con DATE OF EXAM: 08/12/2022 COMPARISON: 08/06/2022 HISTORY: seen last day for same symptoms, dx w/ pancreatitis. upper abd pain CT DLP: 532.5 mGycm Automated exposure control for dose reduction was used. Images obtained from the diaphragm to the floor the pelvis with no contrast. There is mild subsegmental atelectasis at the lung bases. Heart size is normal. No pericardial effusi on. Liver spleen stomach pancreas appear intact. There are small calcified gallstones. The bile ducts are not dilated. No evidence of pancreatic mass. No adrenal mass. Kidneys of normal size. No hydronephrosis. There is some fullness of the left renal pelvis compared to the right. Ureters are not dilated. No retroperitoneal adenopathy. Appendix is pos terior and appears normal. The bladder distends smoothly. No inguinal hernia. No free fluid in the pe lvis. Uterus is anteverted. There is 3 cm fat-containing umbilical hernia noted. Lumbar vertebrae have normal spacing and alignment. Posterior elements are intact. No compression fra cture. The bony pelvis is intact. The hip joints are intact. IMPRESSION: Cholelithiasis. No dilated ducts. No acute abnormality of the abdomen and pelvis. No evidence of richmond l or ureteral stone. The left renal pelvis slightly increased compared to recent exam. Clinical signi ficance is not clear.
== END 2022-08-12 03:58 | disposition home or self-care (01) ==
LOC: EC 22:46
DX: E86.0 Dehydration (principal); K52.9 Noninfective gastroenteritis and colitis, unspecified; Z88.5 Allergy status to narcotic agent
CPT/HCPCS: 99284 ×2; 96365 ×2; 96366 ×2; 96375 ×2; 96361 ×2; 36415 ×2; 80053; 82150; 83690; 85025; 76705; 74176; J2270; J2405; J0295; J1885; C9113

== ENCOUNTER 2022-08-13 17:15 | Emergency (ER) | payer BC ==
[2022-08-13 17:19] VITALS: TEMP 97.8
[2022-08-13] MEDS ORDERED: MORPHINE SULFATE 4 MG/ML SYRINGE IV STA (17:42)
[2022-08-13] MEDS ORDERED: SODIUM CHLORIDE 0.9% 1,000 ML IV STA ×2 (17:42)
[2022-08-13] MEDS ORDERED: METOCLOPRAMIDE 5 MG/ML 2 ML VIAL IVP STA (17:42)
--- NOTE | 2022-08-13 18:02 | ED ---
Abdominal Pain HPI - General Chief Complaint: Abdominal Pain Stated Complaint: stomach pain - gallbladder Time Seen by Provider: 08/13/22 17:33 Source: patient Mode of arrival: ambulatory Limitations: no limitations - History of Present Illness Initial Comments: This 51-year-old female presents with complaint of some pain into her right upper abdomen. This is associated with nausea and vomiting. This is been going on for over a week. She states that it is much worse with any oral intake. She states that it is severe currently. She has had multiple episodes. She was seen in the emergency department one week ago and at that time had mild eleva tion of her liver function studies and lipase. Computed tomography scan of the abdomen and pelvis was negative at that time. She was then seen 2 days ago and had another computed tomography scan and ultrasound and this shows gallstones but no dilated common bile duct in lab studies improved. She was instructed to follow up with a surgeon but has not been able to as of yet. She denies any fevers, chills, diarrhea. She denies any urinary symptomatology. She denies any possibility of . There are no other complaints or modifying factors. - Related Data Home Medications Medication Instructions Recorded Confirmed Liraglutide [Saxenda] 3 mg SQ HS 04/05/22 06/15/22 Multivitamins, Thera [Multivitamin 1 tab PO DAILY 04/05/22 06/15/22 (formulary)] Previous Rx's Medication Instructions Recorded Ondansetron Odt [Zofran Odt] 4 mg PO Q8HR PRN 7 Days #21 tab 08/06/22 Ondansetron Odt [Zofran Odt] 8 mg PO Q8HR PRN #15 tab 08/13/22 traMADol HCl [Ultram] 50 - 100 mg PO Q6HR PRN 3 Days #15 08/13/22 tab Allergies Allergy/AdvReac Type Severity Reaction Status Date / Time codeine AdvReac Nausea & Verified 08/13/22 17:19 [From Tylenol-Codeine #3] Vomiting & Diarrhea Review of Systems ROS Statement: Those systems with pertinent positive or pertinent negative responses have been documented in the HPI. ROS Other: All systems not noted in ROS Statement are negative. Past Medical History Past Medical History: No Reported History History of Any Multi-Drug Resistant Organisms: None Reported Past Surgical History: Section Additional Past Surgical History / Comment(s): lt ovary w/ benign tumor removed Past Anesthesia/Blood Transfusion Reactions: No Reported Reaction Past Psychological History: No Psychological Hx Reported Smoking Status: Never smoker Past Alcohol Use History: None Reported Past Drug Use History: None Reported - Past Family History Father Family Medical History: Cancer Additional Family Medical History / Comment(s): lung CA General Exam - General Exam Comments Initial Comments: GENERAL: The patient is well nourished and well hydrated. VITAL SIGNS: Heart rate, blood pressure, respiratory rate reviewed as recorded in nurse's notes. EYES: Pupils are round and reactive. Extraocular movements are intact. No conjunctival / lid redness or swelling. ENT: No external evidence of injury, swelling, or ecchymosis. Airway is patent. Throat is clear. NECK: Nontender. No swelling or evidence of injury. No subcutaneous emphysema. Trachea is midline. No thyroid mass. HEART: Regular rate and rhythm. Good peripheral pulses. LUNGS/CHEST: Breath sounds clear and equal bilaterally. No rales, rhonchi, or wheezes. No ecchymosis, subcutaneous emphysema, or tenderness. ABDOMEN: Abdomen soft with tenderness noted to the right upper quadrant. No palpable masses or organomegaly. No peritoneal signs. No abdominal wall swelling or ecchymosis. EXTREMITIES: No extremity tenderness. Normal muscle tone and function. No thoracolumbar tenderness. NEUROLOGIC: Sensation is grossly intact. Cranial nerve exam reveals face is symmetrical, tongue is midline, speech is clear. SKIN: No abrasions or ecchymosis is noted. No induration or masses noted. PSYCHIATRIC: Alert and oriented. Appropriate behavior and judgment. Limitations: no limitations Course Vital Signs 08/13/22 08/13/22 17:16 18:29 Temperature 97.8 F Pulse Rate 87 90 Respiratory 16 18 Rate Blood Pressure 142/88 143/86 O2 Sat by Pulse 100 98 Oximetry Medical Decision Making - Medical Decision Making The patient was seen and examined. Old records were reviewed from both 08/06/2022 and 2 days ago. The above findings are noted above. An IV is established patient is hydrated. She receives morphine and Reglan. She notes significant and complete relief on recheck. Laboratory is reviewed and does show a mild transaminitis. The remainder of labs are essentially within normal limits. Old records are reviewed and it does appear as though she just had a gallbladder ultrasound 2 days ago so this was not repeated. It is felt as though she would benefit from admission to the hospital but patient states that she does not want to be admitted. It is a Monday night and she likely would be here until Monday and she states that she would prefer to follow-up with the surgeon on outpatient basis. She will be prescribed Zofran 8 mg as well as Ultram as needed for symptomatology. A long discussion was held in regards to diet therapy. Return parameters are discussed in detail. She was previously referred to Dr. Trinidad and would like to follow-up with this surgeon and she is instructed to do so as soon as possible. - Lab Data Result diagrams: 08/13/22 18:15 08/13/22 18:15 Lab Results 08/13/22 08/13/22 08/13/22 Range/Units 18:15 18:15 18:15 WBC 4.5 (3.8-10.6) k/uL RBC 4.36 (3.80-5.40) m/uL Hgb 13.6 (11.4-16.0) gm/dL Hct 39.1 (34.0-46.0) % MCV 89.7 (80.0-100.0) fL MCH 31.3 (25.0-35.0) pg MCHC 34.9 (31.0-37.0) g/dL RDW 12.3 (11.5-15.5) % Plt Count 226 (150-450) k/uL MPV 7.3 Neutrophils % 62 % Lymphocytes % 27 % Monocytes % 4 % Eosinophils % 5 % Basophils % 1 % Neutrophils # 2.8 (1.3-7.7) k/uL Lymphocytes # 1.2 (1.0-4.8) k/uL Monocytes # 0.2 (0-1.0) k/uL Eosinophils # 0.2 (0-0.7) k/uL Basophils # 0.0 (0-0.2) k/uL PT 10.3 (9.0-12.0) sec INR 1.0 (<1.2) APTT 24.8 (22.0-30.0) sec Sodium 138 (137-145) mmol/L Potassium 3.7 (3.5-5.1) mmol/L Chloride 109 H (98-107) mmol/L Carbon Dioxide 23 (22-30) mmol/L Anion Gap 6 mmol/L BUN 15 (7-17) mg/dL Creatinine 0.61 (0.52-1.04) mg/dL Est GFR (CKD-EPI)AfAm >90 (>60 ml/min/1.73 sqM) Est GFR (CKD-EPI)NonAf >90 (>60 ml/min/1.73 sqM) Glucose 133 H (74-99) mg/dL Calcium 9.9 (8.4-10.2) mg/dL Total Bilirubin 0.9 (0.2-1.3) mg/dL AST 137 H (14-36) U/L ALT 81 H (4-34) U/L Alkaline Phosphatase 110 (38-126) U/L Total Protein 6.3 (6.3-8.2) g/dL Albumin 3.9 (3.5-5.0) g/dL Lipase 259 (23-300) U/L Disposition Clinical Impression: Abdominal pain, Nausea and vomiting, Gallstones, Cholecystitis Disposition: HOME SELF-CARE Condition: Good Instructions (If sedation given, give patient instructions): Abdominal Pain (ED), Cholecystitis (ED) Additional Instructions: You may still take Tylenol and/or Motrin if needed for additional pain. Prescriptions: traMADol HCl [Ultram] 50 - 100 mg PO Q6HR PRN 3 Days #15 tab PRN Reason: Pain Ondansetron Odt [Zofran Odt] 8 mg PO Q8HR PRN #15 tab PRN Reason: Nausea Is patient prescribed a controlled substance at d/c from ED?: No Referrals: Paul Jack MD [Primary Care Provider] - 1-2 days Martin Trinidad MD [Medical Doctor] - As Soon As Possible Time of Disposition: 19:12
[2022-08-13 18:24] LABS: Basophils % (A) 1 %; Eosinophils # (A) 0.2 k/uL (0-0.7); Eosinophils % (A) 5 %; HCT 39.1 % (34.0-46.0); HGB 13.6 gm/dL (11.4-16.0); Lymphocytes # (A) 1.2 k/uL (1.0-4.8); Lymphocytes % (A) 27 %; MCH 31.3 pg (25.0-35.0); MCHC 34.9 g/dL (31.0-37.0); MCV 89.7 fL (80.0-100.0); Mean Platelet Volume 7.3; Monocytes # (A) 0.2 k/uL (0-1.0); Monocytes % (A) 4 %; Neutrophils # (A) 2.8 k/uL (1.3-7.7); Neutrophils % (A) 62 %; Platelet Count 226 k/uL (150-450); RBC 4.36 m/uL (3.80-5.40); RDW 12.3 % (11.5-15.5); WBC 4.5 k/uL (3.8-10.6)
[2022-08-13 18:30] VITALS: RESP 18
[2022-08-13 18:38] LABS: ALT 81 U/L (4-34); AST 137 U/L (14-36); African American GFR (CKD) >90 (>60 ml/min/1.73 sqM); Albumin 3.9 g/dL (3.5-5.0); Alkaline Phosphatase 110 U/L (38-126); Anion Gap 6 mmol/L; Blood Urea Nitrogen 15 mg/dL (7-17); Calcium 9.9 mg/dL (8.4-10.2); Carbon Dioxide 23 mmol/L (22-30); Chloride 109 mmol/L (98-107); Glucose 133 mg/dL (74-99); Lipase 259 U/L (23-300); Non-African American GFR(CKD) >90 (>60 ml/min/1.73 sqM); Potassium 3.7 mmol/L (3.5-5.1); Sodium 138 mmol/L (137-145); Total Bilirubin 0.9 mg/dL (0.2-1.3); Total Protein 6.3 g/dL (6.3-8.2)
[2022-08-13 18:57] LABS: Partial Thromboplastin Time 24.8 sec (22.0-30.0); Prothrombin Time 10.3 sec (9.0-12.0)
[2022-08-13 19:34] VITALS: BP 119/76; PULSE 74
== END 2022-08-13 19:34 | disposition home or self-care (01) ==
LOC: EC 17:15 → SUPCPDRO 17:15 → EC 19:34
DX: K80.10 Calculus of gallbladder with chronic cholecystitis without obstruction (principal); Z88.5 Allergy status to narcotic agent
CPT/HCPCS: 36415; 80053; 83690; 85025; 85610; 85730; 99284; 96374; 96375; J2270; J2765

== ENCOUNTER 2022-08-17 13:05 | Day surgery (SDC) | payer BC ==
[~2022-08-17 13:05] MED LIST changes: +ACETAMINOPHEN TAB 500 MG TAB PO PRN; +HEPARIN SODIUM,PORCINE/PF 5,000 UNIT/0.5 ML SYRINGE SQ PRN; -LACTATED RINGERS 1,000 ML IV ONE; -LACTATED RINGERS 1,000 ML IV SCH; -ONDANSETRON 4 MG/2 ML VIAL IVP ONE; -ONDANSETRON 4 MG/2 ML VIAL ONE
[2022-08-17 13:55] VITALS: RESP 16
[2022-08-17] MEDS ORDERED: LACTATED RINGERS 1,000 ML IV ONE (13:55)
[2022-08-17] MEDS ORDERED: ONDANSETRON 4 MG/2 ML VIAL ONE (13:59)
[2022-08-17] MEDS ORDERED: DEXAMETHASONE SOD PHOSPHATE 4 MG/ML 1 ML VIAL IVP ONE (14:07)
[2022-08-17] MEDS ORDERED: SCOPOLAMINE 1 MG/72 HR PATCH TRANSDERM ONE (14:08)
[2022-08-17] MEDS ORDERED: MIDAZOLAM 2 MG/2 ML VIAL IVP ONE (14:47)
[2022-08-17] MEDS ORDERED: LIDOCAINE 2% INJ 20 MG/ML (2 ML VIAL) ONE (15:03)
[2022-08-17] MEDS ORDERED: KETOROLAC 15 MG/ML 1 ML VIAL ONE (15:03)
[2022-08-17] MEDS ORDERED: PROPOFOL 10 MG/ML 20 ML VIAL IV ONE (15:03)
[2022-08-17] MEDS ORDERED: ROCURONIUM 10 MG/ML (5 ML VIAL) IV ONE (15:03)
[2022-08-17] MEDS ORDERED: NEOSTIGMINE 1 MG/ML 10 ML VIAL ONE (15:03)
[2022-08-17] MEDS ORDERED: SUCCINYLCHOLINE CHLORIDE 200 MG/10 ML VIAL IV ONE (15:03)
[2022-08-17] MEDS ORDERED: MIDAZOLAM 2 MG/2 ML VIAL ONE (15:03)
[2022-08-17] MEDS ORDERED: fentaNYL (PF) 50 MCG/ML 2 ML AMP ONE (15:03)
[2022-08-17] MEDS ORDERED: HYDROmorphone (PF) 1 MG/ML ONE (15:03)
[2022-08-17] MEDS ORDERED: GLYCOPYRROLATE 0.2 MG/ML 2 ML VIAL ONE (15:03)
[2022-08-17] MEDS ORDERED: BUPIVACAIN-EPI 0.25%-1:200,000 30 ML VIAL SQ ONE (15:17)
--- NOTE | 2022-08-17 15:41 | P.OP ---
Date of Procedure: 08/17/22 Preoperative Diagnosis: Chronic cholecystitis Cholelithiasis Postoperative Diagnosis: Same Procedure(s) Performed: Laparoscopic cholecystectomy Anesthesia: ORIANA Surgeon: Naresh Baca Estimated Blood Loss (ml): 5 Pathology: other (Gallbladder) Condition: stable Disposition: PACU Operative Findings: Cholelithiasis Description of Procedure: The patient was placed on the operating table. The patient received a general endotracheal tube anesthesia. The patients abdomen was prepped and draped in the usual sterile fashion. Through an infraumbilical stab incision, the fascia of the anterior abdominal wall was grasped with a pair of Kochers and then the Veress needle was placed in the peritoneal cavity. Position of the Veress needle was confirmed with positive drop test. The abdomen was then insufflated. After adequate insufflation, the 10 mm trocar was placed in the peritoneal cavity. Following this the laparoscope was placed in the peritoneal cavity. The patient was placed in the head-up, right side up position and then a 5 mm trocar was placed in the right lateral and right subcostal position under direct visualization. A 8 mm trocar was placed in the epigastric position. The gallbladder was grasped in the fundus and infundibulum. Traction on the gallbladder was placed in the lateral and the cephalad positions. The triangle of Calot was visualized.. The cystic duct was bluntly dissected until the union of the cystic duct and common bile duct was seen. A critical view of safety was achieved. The cystic duct was then divided and sealed with the Harmonic scissors. A PDS Endoloop was then placed t hroughout the cystic duct stump. The cystic artery divided and sealed with the Harmonic scissors. The gallbladder was then removed from the liver bed using Harmonic scissors. The gallbladder was then extracted through the epigastric port site. Operative field was checked for any bleeding spots and Harmonic scissors was used to coagulate the liver bed. The abdomen was irrigated. The trocars were removed. The skin was closed using interrupted 3-0 Vicryl suture. Dermabond dressing were applied. The patient tolerated the procedure well.
[2022-08-17 15:46] VITALS: TEMP 97.3
[2022-08-17] MEDS ORDERED: HYDROmorphone 0.5 MG/0.5 ML SYRINGE IVP ONE (15:50)
[2022-08-17 17:08] VITALS: BP 110/74; PULSE 84
== END 2022-08-17 17:27 | disposition home or self-care (01) ==
LOC: OR 13:05
PROVIDERS: ATTEND Surgery
DX: K80.10 Calculus of gallbladder with chronic cholecystitis without obstruction (principal); Z80.1 Family history of malignant neoplasm of trachea, bronchus and lung; Z88.2 Allergy status to sulfonamides; Z79.899 Other long term (current) drug therapy
CPT/HCPCS: 47562; J2250; J1100; J0690; J2405; J1170; J1644

== ENCOUNTER → 2023-07-24 | Outpatient (CLI) | payer BC ==
--- NOTE | 2023-07-24 12:08 | BD ---
EXAMINATION TYPE: Axial Bone Density DATE OF EXAM: 07/24/2023 CLINICAL HISTORY: 52 years old Female. ICD-10 CODE: N95.1 POST MENOPAUSAL SYMPTOMS Height: 64.25 Weight: 182.1 FRAX RISK QUESTIONS: Alcohol (3 or more units per day): no Family History (Parent hip fracture): no Glucocorticoids (More than 3mos): no History of Fracture in Adulthood: no Secondary Osteoporosis: 1. Type 1 Diabetes: no 2. Hyperthyroidism: no 3. Menopause before 45: no 4. Malnutrition: no 5. Chronic liver disease: no Rheumatoid Arthritis: no Current Tobacco Use: no RISK FACTORS HISTORY OF: Hip Fracture (Right/Left): no Spine Fracture: no History of Wrist Fracture: no Surgery to Spine/Hip(right/left)/Wrist (right/left): no Family History of Osteoporosis: mother Active: somewhat Diet low in dairy products/other sources of calcium: no Postmenopausal woman: yes Take estrogen and/or progesterone medications: no Lost more than 2 inches in height since high school: no Frequent falls: no Poor Health: no Hyperparathyroidism: no Adrenal Insufficiency: no MEDICATIONS: Prednisone or other steroids: no Thyroid Medications: no Osteoporosis Medications: no Additional Medications: none Additional History: EXAM MEASUREMENTS: Bone mineral densitometry was performed using the [employer] System. Bone mineral density as measured about the Lumbar spine is: ----- L1-L4(G/cm2): 1.153 T Score Values are as follows: ----- L1: -0.2 ----- L2: -0.3 ----- L3: 0.0 ----- L4: -0.6 ----- L1-L4: -0.2 Z Score Values are as follows: ----- L1: -0.4 ----- L2: -0.4 ----- L3: -0.2 ----- L4: -0.7 ----- L1-L4: -0.4 Baseline Study Bone mineral density about the R hip (g/cm2): 0.838 Bone mineral density about the L hip (g/cm2): 0.829 T Score values are as follows: -----R Neck: -2.3 -----L Neck: -2.0 -----R Total: -1.3 -----L Total: -1.4 Z Score values are as follows: -----R Neck: -1.9 -----L Neck: -1.6 -----R Total: -1.3 -----L Total: -1.3 Baseline Study FRAX%s: The graph provided illustrates a 6.3% chance for a major osteoporotic fx and a 1.1% chance fo r the hips probability for fx in 10 years time. IMPRESSION: Osteopenia (T Score between -2.5 and -1). There is slightly increased risk of fracture and the patient may be considered for treatment. Re-Screen 2-5 years. NOTE: T-SCORE=SD OF THE YOUNG ADULT MEAN.
--- NOTE | 2023-07-25 12:23 | MM ---
Reason for Exam: Screening (asymptomatic). Last screening mammogram was performed 12 month(s) ago. Patient History: Menarche at age 16. First Full-Term at age 28. Left ovary removed at age 39. Postmenopausal. Hormonal Contraceptives for 10 years from age 25 until age 35. Risk Values: Lisandra 5 year model risk: 1.0%. NCI Lifetime model risk: 9.1%. Prior Study Comparison: 06/22/2020 Bilateral Screening Mammogram, [facility]. 06/24/2021 Bilateral Screening Mammogram, [facility]. 07/19/2022 Bilateral MG 3D screening mammo w/cad, [facility]. Tissue Density: The breast tissue is heterogeneously dense. This may lower the sensitivity of mammography. Findings: Analyzed By CAD. There is no suspicious group of microcalcifications or new suspicious mass in either breast. Overall Assessment: Benign, BI-RAD 2 Management: Screening Mammogram of both breasts in 1 year. . Patient should continue monthly self-breast exams. A clinical breast exam by your physician is recommended on an annual basis. This exam should not preclude additional follow-up of suspicious palpable abnormalities. Note on Lisandra scores and lifetime risk: 1. A Lisnadra score greater than 3% is considered moderate risk. If this is the case, consider specialist referral to assess eligibility for a risk reducing agent. 2. If overall lifetime risk for the development of breast cancer is 20% or higher, the patient may qualify for future screening with alternating mammogram and breast MRI. Electronically signed and approved by: Ten Valle M.D. Radiologis
== END | disposition home or self-care (01) ==
LOC: RADMAMWWP 09:00
PROVIDERS: ATTEND Obstetrics & Gynecology
DX: Z12.31 Encounter for screening mammogram for malignant neoplasm of breast (principal); N95.1 Menopausal and female climacteric states; M85.89 Other specified disorders of bone density and structure, multiple sites
CPT/HCPCS: 77063; 77067; 77080

== ENCOUNTER → 2024-07-31 | Outpatient (CLI) | payer BC ==
--- NOTE | 2024-08-01 18:49 | MM ---
Reason for Exam: Screening (asymptomatic). Last mammogram was performed 1 year(s) and 1 month(s) ago. Patient History: Menarche at age 16. First Full-Term at age 28. Left ovary removed at age 39. Postmenopausal. Hormonal Contraceptives for 10 years from age 25 until age 35. Risk Values: Lisandra 5 year model risk: 1.0%. NCI Lifetime model risk: 8.9%. Prior Study Comparison: 06/24/2021 Bilateral Screening Mammogram, [facility]. 07/19/2022 Bilateral MG 3D screening mammo w/cad, [facility]. 07/24/2023 Bilateral MG 3D screening mammo w/cad, [facility]. Tissue Density: There are scattered areas of fibroglandular density. Findings: Analyzed By CAD. Unchanged asymmetric density medial left CC view middle depth and central posterior left MLO view. There is no suspicious group of microcalcifications or new suspicious mass in either breast. Overall Assessment: Benign, BI-RAD 2 Management: Screening Mammogram of both breasts in 1 year. Patient should continue monthly self-breast exams. A clinical breast exam by your physician is recommended on an annual basis. This exam should not preclude additional follow-up of suspicious palpable abnormalities. Note on Lisandra scores and lifetime risk: 1. A Lisandra score greater than 3% is considered moderate risk. If this is the case, consider specialist referral to assess eligibility for a risk reducing agent. 2. If overall lifetime risk for the development of breast cancer is 20% or higher, the patient may qualify for future screening with alternating mammogram and breast MRI. [facility], , 08/01/2024 6:46 PM. Electronically signed and approved by: Corinne Rhoades M.D. Radiologist
== END | disposition home or self-care (01) ==
LOC: RADMAMWWP 10:10
PROVIDERS: ATTEND Family Medicine
DX: Z12.31 Encounter for screening mammogram for malignant neoplasm of breast (principal); Z78.0 Asymptomatic menopausal state; Z90.721 Acquired absence of ovaries, unilateral; R92.323 Mammographic fibroglandular density, bilateral breasts
CPT/HCPCS: 77063; 77067